=== PATIENT | female | born 1980 | race Caucasian/White ===

== ENCOUNTER 2018-05-05 15:48 | Emergency (ER) | payer BC ==
[2018-05-05 16:21] VITALS: BP 107/72
--- NOTE | 2018-05-05 16:35 | UC ---
Respiratory Complaint HPI - HPI Summary HPI Summary: 38-year-old woman comes in to clinic today with a chief complaint of 2 weeks of upper respiratory tract infection symptoms. She's of runny nose sore throat cough chest congestion for 2 weeks. She has had chills. [id number] medicine is not helping. She's been having yellow sputum she feels primarily the infection. She did travel to [place] 2 weeks ago. - History of Current Complaint Chief Complaint: UCGeneralIllness Stated Complaint: COUGH Time Seen by Provider: 05/05/18 16:25 Hx Last Menstrual Period: 07/21/15 Pain Intensity: 2 - Allergies/Home Medications Allergies/Adverse Reactions: Allergies Allergy/AdvReac Type Severity Reaction Status Date / Time environmental Allergy Eyes Uncoded 05/05/18 16:21 Itchy/Swollen/Red/Watery PMH/Surg Hx/FS Hx/Imm Hx Previously Healthy: Yes - Surgical History Surgical History: Yes Surgery Procedure, Year, and Place: R shoulder surgery- - Family History Known Family History: Positive: None - Social History Alcohol Use: Occasionally Substance Use Type: None Smoking Status (MU): Never Smoked Tobacco Household Exposure Type: Cigarettes - Immunization History Most Recent Influenza Vaccination: Not the Season Review of Systems All Other Systems Reviewed And Are Negative: Yes Constitutional: Positive: Chills Skin: Positive: Negative Eyes: Positive: Negative ENT: Positive: Sore Throat, Nasal Discharge, Sinus Congestion Respiratory: Positive: Cough Cardiovascular: Positive: Negative Gastrointestinal: Positive: Negative Motor: Positive: Negative Neurovascular: Positive: Negative Musculoskeletal: Positive: Negative Neurological: Positive: Negative Psychological: Positive: Negative Is Patient Immunocompromised?: No Physical Exam Triage Information Reviewed: Yes Appearance: No Pain Distress, Well-Nourished, Ill-Appearing - MILD Vital Signs: Initial Vital Signs Temp 97.5 F 05/05/18 16:18 Pulse 73 05/05/18 16:18 Resp 18 05/05/18 16:18 BP 107/72 05/05/18 16:18 Pulse Ox 100 05/05/18 16:18 Vital Signs Reviewed: Yes Eye Exam: Normal Eyes: Positive: Conjunctiva Clear ENT: Positive: Pharynx normal, Pharyngeal erythema, Nasal congestion, Nasal drainage, TMs normal Neck exam: Normal Neck: Positive: Supple Respiratory: Positive: Lungs clear, Normal breath sounds, No respiratory distress Cardiovascular: Positive: RRR Musculoskeletal Exam: Normal Musculoskeletal: Positive: Strength Intact, ROM Intact Neurological Exam: Normal Neurological: Positive: Alert, Muscle Tone Normal Psychological Exam: Normal Psychological: Positive: Normal Response To Family, Age Appropriate Behavior Skin Exam: Normal UC Diagnostic Evaluation - Laboratory O2 Sat by Pulse Oximetry: 100 Respiratory Course/Dx - Differential Dx/Diagnosis Provider Diagnosis: Bronchitis Discharge - Sign-Out/Discharge Documenting (check all that apply): Patient Departure All imaging exams completed and their final reports reviewed: No Studies - Discharge Plan Condition: Stable Disposition: HOME Prescriptions: Azithromyxin PARADISE (NF) [Z-Paradise (Zithromax) 250 mg tabs #6] 2 tab PO .TODAY, THEN 1 DAILY #6 tab Benzonatate CAP* [Tessalon 100 MG CAP*] 100 mg PO TID PRN #20 cap PRN Reason: Cough Patient Education Materials: Acute Bronchitis (ED) Referrals: Krystian MADDEN,Gonzalo Aranda [Primary Care Provider] - Additional Instructions: FOLLOW UP WITH YOUR DOCTOR IF NOT COMPLETELY IMPROVED. GET RECHECKED FOR ANY WORSENING OF YOUR CONDITION OR QUESTIONS OR CONCERNS. - Billing Disposition and Condition Condition: STABLE Disposition: Home
== END 2018-05-05 16:40 | disposition home or self-care (01) ==
LOC: UCEAST 16:14
DX: J40 Bronchitis, not specified as acute or chronic (principal)
CPT/HCPCS: 99202; G0463

== ENCOUNTER 2018-06-09 21:22 | Emergency (ER) | payer BC ==
[2018-06-09] MEDS ORDERED: NS 0.9% 1000 ML* 1,000 ML IV ONE (23:32)
[2018-06-09] MEDS ORDERED: PROCHLORPERAZINE INJ 5 MG/ML 2 ML VIAL IV ONE (23:41)
[2018-06-09 23:49] LABS: ABS Basophils 0.1 10^3/ul (0-0.2); ABS Eosinophils 0.2 10^3/ul (0-0.6); ABS Lymphocytes 3.2 10^3/ul (1.0-4.8); ABS Monocytes 0.7 10^3/ul (0-0.8); ABS Neutrophils 7.1 10^3/ul (1.5-7.7); ABS Nucleated RBC 0 10^3/ul; Eosinophil % 1.5 %; Hematocrit 39 % (35-47); Hemoglobin 12.9 g/dl (12.0-16.0); Lymphocyte % 28.6 %; Mean Corpuscular HGB Conc 33 g/dl (31-36); Mean Corpuscular Hemoglobin 28 pg (27-31); Mean Corpuscular Volume 85 fL (80-97); Mean Platelet Volume 7.4 fL (7.4-10.4); Nucleated Red Blood Cells % 0; Platelet Count 295 10^3/ul (150-450); Red Blood Count 4.61 10^6/ul (4.00-5.40); Red Cell Distribution Width 12 % (10.5-15); White Blood Count 11.3 10^3/ul (3.5-10.8)
[2018-06-10 00:05] LABS: Albumin 4.2 g/dL (3.2-5.2); Albumin/Globulin Ratio 1.4 (1-3); BUN/Creatinine Ratio 10.7 (8-20); Calcium 9.9 mg/dL (8.6-10.3); EGFR Non-African American 87.4 (>60); Globulin 3.1 g/dL (2-4); Potassium 3.5 mmol/L (3.5-5.0); Total Bilirubin 0.5 mg/dL (0.2-1.0); Total Protein 7.3 g/dL (6.4-8.9)
--- NOTE | 2018-06-10 00:52 | ED ---
GI/ HPI - HPI Summary HPI Summary: Pt. is a 38 y.o female who presents to the ER for N/V x 3 days. Pt. is currently 6 weeks . She has not yet seen her OB. This is her first . Pt. notes some mild diarrhea as well. She notes intermittent epigastric discomfort but denies pelvic pain/cramping, vaginal discharge or bleeding. Denies fever, cough, sore throat. No past medical hx. Pt. states she has tried taking OTC vitamin B6 and unisom without improvement. She called her OB office and they rx reglan which is not helping either. Symptoms are moderate in severity. No current modifying factors. - History of Current Complaint Chief Complaint: EDNauseaVomitDiarrh Time Seen by Provider: 06/09/18 23:25 Stated Complaint: ABD PAIN Hx Obtained From: Patient Hx Last Menstrual Period: 07/21/15 Pain Intensity: 3 - Allergy/Home Medications Allergies/Adverse Reactions: Allergies Allergy/AdvReac Type Severity Reaction Status Date / Time environmental Allergy Eyes Uncoded 06/09/18 21:28 Itchy/Swollen/Red/Watery PMH/Surg Hx/FS Hx/Imm Hx Previously Healthy: Yes Endocrine/Hematology History: Denies: Hx Diabetes, Hx Thyroid Disease Cardiovascular History: Denies: Hx Hypertension Respiratory History: Denies: Hx Asthma, Hx Chronic Obstructive Pulmonary Disease (COPD) GI History: Denies: Hx Ulcer - Surgical History Surgery Procedure, Year, and Place: R shoulder surgery- 01 Infectious Disease History: No Infectious Disease History: Denies: Hx Clostridium Difficile, Hx Hepatitis, Hx Human Immunodeficiency Virus (HIV), Hx of Known/Suspected MRSA, Hx Shingles, Hx Tuberculosis, Hx Known/ Suspected VRE, Hx Known/Suspected VRSA, History Other Infectious Disease, Traveled Outside the [place] in Last 30 Days - Family History Known Family History: Positive: None, Non-Contributory - Social History Occupation: Employed Full-time Lives: With Family Alcohol Use: Occasionally Substance Use Type: Reports: None Smoking Status (MU): Never Smoked Tobacco Review of Systems Constitutional: Negative Negative: Fever, Chills Eyes: Negative ENT: Negative Cardiovascular: Negative Respiratory: Negative Positive: Abdominal Pain - epigastric discomfort, Vomiting, Diarrhea, Nausea Genitourinary: Negative Negative: dysuria Neurological: Negative All Other Systems Reviewed And Are Negative: Yes Physical Exam Triage Information Reviewed: Yes Vital Signs On Initial Exam: Initial Vitals Temp Pulse Resp BP Pulse Ox 98.4 F 72 16 114/71 100 06/09/18 21:25 06/09/18 21:25 06/09/18 21:25 06/09/18 21:25 06/09/18 21:25 Vital Signs Reviewed: Yes Appearance: Positive: Well-Appearing - Pt. sitting up in bed in NAD. Mother present. Skin: Positive: Warm, Dry Head/Face: Positive: Normal Head/Face Inspection Eyes: Positive: Normal, EOMI, Conjunctiva Clear ENT: Positive: Other - mucosa dry Neck: Positive: Supple Respiratory/Lung Sounds: Positive: Clear to Auscultation, Breath Sounds Present Cardiovascular: Positive: Normal, RRR Abdomen Description: Positive: Other: - Abd. is soft without tenderness. Musculoskeletal: Positive: Normal, Strength/ROM Intact Neurological: Positive: Normal, CN Intact II-III Psychiatric: Positive: Affect/Mood Appropriate Diagnostics - Vital Signs Vital Signs Temp Pulse Resp BP Pulse Ox 06/09/18 23:27 62 114/74 100 06/09/18 21:25 98.4 F 72 16 114/71 100 - Laboratory Lab Results: Lab Results 06/09/18 06/09/18 Range/Units 23:43 23:43 WBC 11.3 H (3.5-10.8) 10^3/ul RBC 4.61 (4.00-5.40) 10^6/ul Hgb 12.9 (12.0-16.0) g/dl Hct 39 (35-47) % MCV 85 (80-97) fL MCH 28 (27-31) pg MCHC 33 (31-36) g/dl RDW 12 (10.5-15) % Plt Count 295 (150-450) 10^3/ul MPV 7.4 (7.4-10.4) fL Neut % (Auto) 63.0 % Lymph % (Auto) 28.6 % Vilas % (Auto) 6.4 % Eos % (Auto) 1.5 % Baso % (Auto) 0.5 % Absolute Neuts (auto) 7.1 (1.5-7.7) 10^3/ul Absolute Lymphs (auto) 3.2 (1.0-4.8) 10^3/ul Absolute Monos (auto) 0.7 (0-0.8) 10^3/ul Absolute Eos (auto) 0.2 (0-0.6) 10^3/ul Absolute Basos (auto) 0.1 (0-0.2) 10^3/ul Absolute Nucleated RBC 0 10^3/ul Nucleated RBC % 0 Sodium 134 L (135-145) mmol/L Potassium 3.5 (3.5-5.0) mmol/L Chloride 102 (101-111) mmol/L Carbon Dioxide 25 (22-32) mmol/L Anion Gap 7 (2-11) mmol/L BUN 8 (6-24) mg/dL Creatinine 0.75 (0.51-0.95) mg/dL Est GFR ( Amer) 105.8 (>60) Est GFR (Non-Af Amer) 87.4 (>60) BUN/Creatinine Ratio 10.7 (8-20) Glucose 91 (70-100) mg/dL Calcium 9.9 (8.6-10.3) mg/dL Total Bilirubin 0.50 (0.2-1.0) mg/dL AST 16 (13-39) U/L ALT 9 (7-52) U/L Alkaline Phosphatase 59 (34-104) U/L Total Protein 7.3 (6.4-8.9) g/dL Albumin 4.2 (3.2-5.2) g/dL Globulin 3.1 (2-4) g/dL Albumin/Globulin Ratio 1.4 (1-3) Result Diagrams: 06/09/18 23:43 06/09/18 23:43 Lab Statement: Any lab studies that have been ordered have been reviewed, and results considered in the medical decision making process. GIGU Course/Dx - Course Course Of Treatment: Pt. presenting for N/V in early . She does have mild diarrhea as well. She has no abd. tenderness on exam. VS stable. Will check basic labs, give iv fluids and reglan. Labs are unremarkable. U/A shows ketones without signs of infection. On re-exam pt. is tolerating PO fluids and has had no vomiting in ED. Pt. states she is feeling better. Will dc home with rx for compazine. To call OB tomorrow for apt. To return to ER if sxs change or worsen. Pt. understands and agrees with plan. - Diagnoses Differential Diagnoses - Female: Diarrhea, Gerd, Vomiting Provider Diagnoses: Nausea/vomiting in Discharge - Sign-Out/Discharge Documenting (check all that apply): Patient Departure - Discharge Plan Condition: Improved Disposition: HOME Prescriptions: Prochlorperazine TAB* [Compazine Tab*] 10 mg PO Q6H PRN #20 tab PRN Reason: Nausea Patient Education Materials: Nausea and Vomiting in (ED), Hyperemesis Gravidarum (ED) Referrals: Lillian Monson MD [Medical Doctor] - Domingo Joshua MD [Primary Care Provider] - Additional Instructions: Schedule a close follow up appointment with your PCP Medication as directed for nausea/vomiting Return to the ER if symptoms change or worsen - Billing Disposition and Condition Condition: IMPROVED Disposition: Home
[2018-06-10 01:10] LABS: Urine Appearance Cloudy; Urine Bilirubin Negative (Negative); Urine Blood Negative (Negative); Urine Color Yellow; Urine Glucose Negative (Negative); Urine Ketones 2+ (Negative); Urine Nitrite Negative (Negative); Urine Protein Negative (Negative); Urine Specific Gravity 1.024 (1.010-1.030); Urine Urobilinogen Negative (Negative)
[2018-06-10 01:20] VITALS: BP 101/63
== END 2018-06-10 01:23 | disposition home or self-care (01) ==
LOC: ED 21:22
DX: R11.2 Nausea with vomiting, unspecified (principal); Z34.91 Encounter for supervision of normal pregnancy, unspecified, first trimester
CPT/HCPCS: 36415; 80053; 81003; 85025; 96360; 99282; J0780

== ENCOUNTER 2018-12-23 05:06 | Inpatient (IN) | payer BC ==
[2018-12-23 06:13] LABS: ABS Basophils 0.1 10^3/ul (0-0.2); ABS Eosinophils 0.2 10^3/ul (0-0.6); ABS Lymphocytes 3.1 10^3/ul (1.0-4.8); ABS Monocytes 0.7 10^3/ul (0-0.8); ABS Neutrophils 6.8 10^3/ul (1.5-7.7); Eosinophil % 1.7 %; Hematocrit 30 % (35-47); Hemoglobin 9.8 g/dL (12.0-16.0); Lymphocyte % 28.4 %; Mean Corpuscular HGB Conc 33 g/dL (31-36); Mean Corpuscular Hemoglobin 25 pg (27-31); Mean Corpuscular Volume 76 fL (80-97); Mean Platelet Volume 8.9 fL (7.4-10.4); Nucleated Red Blood Cells % 0.1; Platelet Count 298 10^3/uL (150-450); Red Blood Count 3.89 10^6 /uL (3.70-4.87); Red Cell Distribution Width 15 % (10-15); White Blood Count 10.9 10^3/uL (3.5-10.8)
[2018-12-23 06:47] LABS: Urine Benzodiazepine Screen None Detected (None Detect); Urine Opiates Screen None Detected (None Detect)
[2018-12-23] MEDS ORDERED: Buffered Lidocaine 1% SYRIN* 1 ML/SYRINGE INTRADERM ONE (07:35)
[2018-12-23] MEDS ORDERED: Lactated Ringers 1000 ML Bag* 1,000 ML IV ONE ×2 (07:35→15:28)
[2018-12-23] MEDS ORDERED: Ampicillin ADVAN(*) 2 GM in NS 0.9% 100 ML* 100 ML IVPB ONE (07:56)
[2018-12-23] MEDS ORDERED: Azithromycin TAB* 250 MG PO ONE (07:58)
[2018-12-23] MEDS ORDERED: Betamethasone INJ* 6 MG/ML 5 ML VIAL (30 MG) IM SCH (08:00)
--- NOTE | 2018-12-23 08:17 | HP ---
General Information - Reason for Visit Patient is 38 year at 34 4/7 weeks with known twin di/di with breech/ vertex presentation presents with PPROM since 430am on 12/23/2018. She is having mild cramping which started after the rupture of membranes. Patient denies headache, nausea, vomiting, fever, chills, dysuria. She denies vaginal bleeding. She feels normal movements. She denies complications of her such as hypertension, diabetes. She does have mild anemia. She has been taking her vitamin daily. She has a history of infertility but this was a naturally conceived twin . PMH: infertility, no hypertension, no diabetes, no asthma PSH: uterine septum resection, shoulder surgery Allergies: NKDA Meds: vitamin SH: lives with her fiance, she denies alcohol, drug use or cigarette use FH: twins, paternal grandfather - diabetes and prostate cancer ROS: as stated, otherwise negative - General Information Maternal Age: 38 Grav: 2 Para: 0 SAB: 1 IEA: 0 Estimated Due Date: 01/30/19 Determined By: LMP Gestational Age in Weeks/Days: 34 4/7 Maternal Blood Type and Rh: O Positive - Results this Serology/RPR Result: Non-Reactive Rubella Result: Immune HBsAg Result: Negative HIV Result: Negative Past Medical History Delivery History: See Records Pertinent Past Medical History: See Records Pertinent Past Surgical History: See Records Pertinent Family History: See Records - Antepartal Records Antepartal Records: Reviewed, Complicated by: - di/di twin breech/vertex presentation Review of Systems CV Complaint: No Respiratory: Shortness of Breath: No Gastrointestinal: No Nausea/Vomiting Genitourinary: Dysuria Musculoskeletal: No Complaint Neurological: No Headache Movement: Normal - Comments mild uterine cramping Exam Allergies/Adverse Reactions: Allergies environmental Allergy (Uncoded 06/09/18 21:28) Eyes Itchy/Swollen/Red/Watery T 99.8 BP 125/77, P71 Lab Values - Entire Visit: Laboratory Tests 12/23/18 12/23/18 12/23/18 05:15 06:00 06:00 WBC 10.9 H RBC 3.89 Hgb 9.8 L Hct 30 L MCV 76 L MCH 25 L MCHC 33 RDW 15 Plt Count 298 MPV 8.9 Neut % (Auto) 62.5 Lymph % (Auto) 28.4 Dickey % (Auto) 6.8 Eos % (Auto) 1.7 Baso % (Auto) 0.6 Absolute Neuts (auto) 6.8 Absolute Lymphs (auto) 3.1 Absolute Monos (auto) 0.7 Absolute Eos (auto) 0.2 Absolute Basos (auto) 0.1 Absolute Nucleated RBC 0.0 Nucleated RBC % 0.1 Vag Amniotic Fld Detect Positive Urine Opiates Screen None detected Ur Barbiturates Screen None detected Ur Phencyclidine Scrn None detected Ur Amphetamines Screen None detected U Benzodiazepines Scrn None detected Urine Cocaine Screen None detected U Cannabinoids Screen None detected Blood Type Antibody Screen 12/23/18 06:00 WBC RBC Hgb Hct MCV MCH MCHC RDW Plt Count MPV Neut % (Auto) Lymph % (Auto) Dickey % (Auto) Eos % (Auto) Baso % (Auto) Absolute Neuts (auto) Absolute Lymphs (auto) Absolute Monos (auto) Absolute Eos (auto) Absolute Basos (auto) Absolute Nucleated RBC Nucleated RBC % Vag Amniotic Fld Detect Urine Opiates Screen Ur Barbiturates Screen Ur Phencyclidine Scrn Ur Amphetamines Screen U Benzodiazepines Scrn Urine Cocaine Screen U Cannabinoids Screen Blood Type O Positive Antibody Screen Negative - Measurements Height: 1.68 m Weight: 86.636 kg Weight in lbs: 191.139797 Body Mass Index (BMI): 30.8 Pre- Weight: 75.75 kg Weight Gained This : 24 lbs and 0 ozs - Exam Breast: Breast Exam Deferred CVA: No CVA Tenderness Extremities: No Edema Heart: Normal Rhythm/Heart Sounds HEENT: No Significant Findings Lungs: Clear Bilaterally Rectal: Rectal Exam Deferred Reflexes: DTR 2+ Thyroid: No Thyromegaly Other Exam Findings: gravid, breech presentation baby A, vertex presentation baby B - Abdominal Exam Abdomen Exam: Non-Tender - Ultrasound/Biophysical Profile Ultrasound Status: Bedside Exam Ultrasound Findings: ultrasound for presentation: baby A breech, amniotic fluid pocket 4.98cm, baby B vertex, amniotic fluid pocket 4.0cm Targeted Exam Findings Cervical Exam: Closed Effacement: Thick Station: High Presenting Part: Breech Membrane Status: SROM Amniotic Fluid Evaluation: Gross Rupture, Clear Bleeding/Discharge: None EFM Findings - External Monitor Findings External Monitor Findings: Variability Moderate, Baseline Stable Contractions: Mild, < 45 Seconds Assessment/Plan - Obstetrical Risk Factors Obstetrical Risk Factors: GBS Unknown, , Breech - Plan Plan: Observe, Antibiotic Prophylaxis, Steroids Plan Comment: Patient was counselled regarding the risk/benefits/and alternatives of expectant management and administration of steroids and antibiotics with her diagnosis of premature rupture of membranes at 34 4/7 weeks and she is in agreement with the management plan. Patient for Csection delivery after steroid administration due to breech presentation of twin A. Ita Santiago MD - Date/Time of Admission Date of Admission: 12/23/18 - premature rupture of membranes at 34 4/7 weeks Time of Admission: 08:38
[2018-12-23] MEDS: Prenatal Vitamin TAB PO SCH (08:37)
[2018-12-23] MEDS ORDERED: Docusate CAP* 100 MG PO PRN (08:42)
[2018-12-23] MEDS ORDERED: Ferrous Gluconate TAB* 324 MG TAB PO SCH (09:00)
[2018-12-23] MEDS ORDERED: OBEPIDURAL* 250 ML EPIDURAL ONE (14:36)
[2018-12-23] MEDS: Ampicillin ADVAN(*) 1 GM in NS 0.9% 50 ML* 50 ML IVPB SCH ×2 (15:04→21:46)
[2018-12-23] MEDS ORDERED: Phenylephrine 40 MCG/ML SYRINGE IV PUSH PRN ×2 (15:28)
[2018-12-23] MEDS ORDERED: EPHEDrine (Pressors)* 50 MG/ML VIAL IV PUSH PRN ×2 (15:28)
[2018-12-23] MEDS ORDERED: Famotidine TAB* 20 MG PO PRN (15:28)
[2018-12-23] MEDS ORDERED: Sodium Citrate/Citric Acid* 15 ML UDC PO PRN (15:28)
[2018-12-23] MEDS ORDERED: Lactated Ringers 1000 ML Bag* 1,000 ML IV SCH ×2 (16:00→18:00)
[2018-12-23] MEDS ORDERED: OBEPIDURAL* 250 ML EPIDURAL SCH (16:00)
[2018-12-23] MEDS ORDERED: ceFOXitin 2 GM IVPREMIX* 2 GM/50 ML BAG ONE (16:25)
[2018-12-23] MEDS ORDERED: ceFOXitin 2 GM IVPREMIX* 2 GM/50 ML BAG IVPB ONE (16:30)
--- NOTE | 2018-12-23 16:35 | PN ---
Progress Note - Progress Note Date of Service: 12/23/18 - Progress Note Note: Patient developed regular painful contractions requiring pain relief with epidural analgesia. Patient was consented for primary section for delivery of di/di twin due to breech presentation of first twin. Patient counselled with risk/benefits/alternatives to the surgery and consented to the surgery for delivery of the twin . Ita Santiago MD
[2018-12-23] MEDS ORDERED: EPHEDrine (Pressors)* 50 MG/ML VIAL ONE (16:53)
[2018-12-23] MEDS ORDERED: Ondansetron INJ* 2 MG/ML VIAL ONE (16:56)
[2018-12-23] MEDS ORDERED: diPHENhydraMINE IV* 50 MG/ML 1 ml VIAL (BENADRYL) IV PRN (17:12)
[2018-12-23] MEDS ORDERED: DiMENhydriNATE IV* 50 MG/ML VIAL IV PUSH PRN (17:12)
[2018-12-23] MEDS ORDERED: Ondansetron INJ* 2 MG/ML VIAL IV PRN ×2 (17:12→21:26)
[2018-12-23] MEDS ORDERED: oxyCODONE/Acetamin 5/325 MG* TAB PO PRN (17:12)
[2018-12-23] MEDS ORDERED: Naloxone* 0.4 MG/ML 1 ML VIAL IV PRN (17:12)
[2018-12-23] MEDS ORDERED: Naloxone* 0.4 MG/ML 1 ML VIAL IV PUSH PRN (17:17)
[2018-12-23] MEDS ORDERED: Acetaminophen TAB* 325 MG PO PRN ×2 (17:18→17:37)
[2018-12-23] MEDS ORDERED: Ketorolac INJ* 30 MG/ML 1 ML VIAL IV PUSH PRN (17:19)
[2018-12-23] MEDS ORDERED: Midazolam* 1 MG/ML 2 ML VIAL (2 MG) ONE (17:22)
[2018-12-23] MEDS ORDERED: Zolpidem TAB* 5 MG PO PRN (17:37)
[2018-12-23] MEDS ORDERED: Dibucaine 1% 28.35 GM TUBE PR PRN (17:37)
[2018-12-23] MEDS ORDERED: Glycerin ADULT SUPP PR PRN (17:37)
[2018-12-23] MEDS ORDERED: Misoprostol TAB* 200 MCG PR ONE (17:37)
[2018-12-23] MEDS ORDERED: Witch Hazel PAD* JAR TOPICAL PRN (17:37)
[2018-12-23] MEDS: fentaNYL* 50 MCG/ML 2 ML VIAL (100 MCG VIAL) IV PRN ×2 (17:57→19:01)
[2018-12-23] MEDS: Ketorolac INJ* 30 MG/ML 1 ML VIAL IV PUSH SCH (18:00)
[2018-12-23] MEDS ORDERED: Oxytocin in LR* 20 UNITS/1,000 ML BAG IVPB SCH (18:00)
[2018-12-23] MEDS ORDERED: HYDROmorphone PCA* 20 MG/20 ML PCA.SYRING PCA SCH (18:00)
[2018-12-23] MEDS ORDERED: HYDROmorphone PCA* 20 ML PCA SCH (18:00)
--- NOTE | 2018-12-23 19:07 | OP ---
OPERATIVE REPORT: DATE OF OPERATION: 12/23/18 DATE OF : 84 SURGEON: Antonino Cox MD PLASTICS NURSE: Dr. Santiago. ANESTHESIA: Spinal. PRE-OP DIAGNOSIS: Breech vertex presentation for twins at 34 weeks with premature rupture of membranes. POST-OP DIAGNOSIS: Breech vertex presentation for twins at 34 weeks with premature rupture of membranes. OPERATIVE PROCEDURE: Low transverse section. ESTIMATED BLOOD LOSS: 600 cc. SPECIMEN: Includes placentas. FINDINGS: Include a viable female, Apgars 9 and 9, weight was 5 pounds 3 ounces in breech presenting and baby B viable female, Apgars 8 and 9, 3 pounds 4 ounces in a vertex presenting. Fallopian tubes appeared normal. Uterus contained an attenuation in the midline consistent with a history of a septate uterus that was resected and I would call it partially heart shaped. DESCRIPTION OF PROCEDURE: The patient identified, procedure identified as a low transverse section. The patient was taken to the operating room, prepped and draped in the usual fashion in the left lateral recumbent position under spinal anesthesia. A Pfannenstiel incision was made in the abdomen and carried down through fat, fascia, and peritoneum. A transverse incision was made in the lower uterine segment, extended laterally using blunt dissection. The above infant was delivered in the breech presentation with ease. Cord was doubly clamped and cut and the was handed to the awaiting sanitarian inspector. Cord blood was obtained. Second baby's sac was ruptured and delivered in the vertex position. The cord was doubly clamped and cut and the infant was handed to the awaiting sanitarian inspector. Cord blood was obtained. Placentas delivered spontaneously. The uterus was wiped out with a lap sponge. The uterine incision was then closed using 0 Polysorb in a running fashion. A second layer was used to imbricate the first layer. Good hemostasis was verified. The uterus was placed back into the abdominal cavity. The gutters were wiped out with a lap sponge. The peritoneum was then closed using 3-0 Polysorb in a running fashion. Good hemostasis achieved in the subrectus layers. The fascia was closed using 0 Polysorb in a running fashion. Hemostasis was achieved in the subcu. Copious irrigation was utilized and suctioned out. The skin was closed with 4-0 Monocryl in a subcuticular fashion. All sponge and instrument counts were correct and the patient returned to the recovery room in stable condition. [id number]/[facility] #: [id number] TORRIE
[2018-12-23] MEDS: HYDROmorphone INJ* 0.5 MG/0.5 ML SYRINGE IV PRN ×2 (19:18→19:41)
[2018-12-23] MEDS ORDERED: Scopolamine 1.5 mg* PATCH TRANSDERM PRN (21:27)
[2018-12-23] MEDS ORDERED: Ondansetron INJ* 2 MG/ML VIAL IV ONE (21:30)
[2018-12-23] MEDS: Docusate CAP* 100 MG PO SCH (21:38)
[2018-12-23] MEDS: Simethicone TAB* 80 MG TAB.CHEW PO SCH (23:42)
[2018-12-24] MEDS: Ketorolac INJ* 30 MG/ML 1 ML VIAL IV PUSH SCH ×3 (00:32→13:15)
[2018-12-24 06:50] LABS: Hematocrit 22 % (35-47); Hemoglobin 7.4 g/dL (12.0-16.0); Mean Corpuscular HGB Conc 33 g/dL (31-36); Mean Corpuscular Hemoglobin 25 pg (27-31); Mean Corpuscular Volume 76 fL (80-97); Mean Platelet Volume 8.5 fL (7.4-10.4); Platelet Count 249 10^3/uL (150-450); Red Blood Count 2.95 10^6 /uL (3.70-4.87); Red Cell Distribution Width 14 % (10-15); White Blood Count 17.6 10^3/uL (3.5-10.8)
[2018-12-24 08:01] LABS: ABS Basophils 0.1 10^3/ul (0-0.2); ABS Lymphocytes 1.7 10^3/ul (1.0-4.8); ABS Monocytes 1.6 10^3/ul (0-0.8); ABS Neutrophils 14.2 10^3/ul (1.5-7.7); Lymphocyte % 9.9 %
[2018-12-24] MEDS: Docusate CAP* 100 MG PO SCH ×3 (08:45→21:25)
[2018-12-24] MEDS: Ferrous Gluconate TAB* 324 MG TAB PO SCH ×2 (08:45→21:25)
[2018-12-24] MEDS: Simethicone TAB* 80 MG TAB.CHEW PO SCH ×4 (08:45→21:25)
[2018-12-24] MEDS: Prenatal Vitamin TAB PO SCH (08:46)
--- NOTE | 2018-12-24 10:18 | PN ---
Progress Note - Progress Note Date of Service: 12/24/18 - POD#1 s/p PLTCS Note: Patient is s/p POD#1 s/p PLTCS for di/di twin with PPROM at 34 4/7 weeks. Baby girls are in the room with her in isolets. She is passing gas and tolerating regular diet. She is using QUALITY ASSURANCE LEAD intermittently and toradol every 6 hours for pain relief. She will have the christensen catheter removed today. She is breast and bottle feeding her twins. She had some nausea and vomiting yesterday but this has resolved. She denies dizziness. O: Vital Signs: Temp Pulse Resp BP Pulse Ox 98.8 F 60 20 116/67 97 12/24/18 07:30 12/24/18 07:30 12/24/18 08:00 12/24/18 07:30 12/24/18 08:00 chest: clear to auscultation cardiac: regular rate and rhythm abdomen: soft, mild distension, Bowel sounds present, dressing dry and intact lochia scant extremities nontender, no edema. Laboratory Results - last 24 hr 12/24/18 06:41 WBC 17.6 H RBC 2.95 L Hgb 7.4 L Hct 22 L MCV 76 L MCH 25 L MCHC 33 RDW 14 Plt Count 249 MPV 8.5 Neut % (Auto) 80.8 Lymph % (Auto) 9.9 Dunn % (Auto) 9.0 Eos % (Auto) 0.0 Baso % (Auto) 0.3 Absolute Neuts (auto) 14.2 H Absolute Lymphs (auto) 1.7 Absolute Monos (auto) 1.6 H Absolute Eos (auto) 0.0 Absolute Basos (auto) 0.1 Absolute Nucleated RBC 0.0 Nucleated RBC % 0.0 Assessment: POD #1 s/p Primary LTCS for delivery of twins at 34/4/7 weeks, acute postoperative blood loss anemia. Patient is not having further heavy lochia, vital signs are stable. Plan : Patient is ordered for iron supplementation, she will have christensen discontinued, out of bed with assistance, switch QUALITY ASSURANCE LEAD to oral pain medications when tolerating oral intake, continue supportive care. Ita Santiago MD
[2018-12-24] MEDS: oxyCODONE/Acetamin 5/325 MG* TAB PO PRN ×3 (13:16→23:37)
[2018-12-24] MEDS: Ibuprofen TAB* 600 MG PO PRN (19:28)
[2018-12-25] MEDS: Ibuprofen TAB* 600 MG PO PRN ×4 (03:10→22:26)
[2018-12-25] MEDS: oxyCODONE/Acetamin 5/325 MG* TAB PO PRN ×4 (05:40→20:09)
[2018-12-25] MEDS: Docusate CAP* 100 MG PO SCH ×4 (08:50→20:11)
[2018-12-25] MEDS: Ferrous Gluconate TAB* 324 MG TAB PO SCH ×2 (08:50→20:10)
[2018-12-25] MEDS: Simethicone TAB* 80 MG TAB.CHEW PO SCH ×5 (08:50→20:10)
[2018-12-25] MEDS: Prenatal Vitamin TAB PO SCH (09:00)
[2018-12-25 20:27] VITALS: BP 126/69
[2018-12-26] MEDS: oxyCODONE/Acetamin 5/325 MG* TAB PO PRN ×4 (00:44→12:40)
[2018-12-26] MEDS: Ibuprofen TAB* 600 MG PO PRN ×2 (04:11→10:11)
[2018-12-26] MEDS: Prenatal Vitamin TAB PO SCH (08:44)
[2018-12-26] MEDS: Simethicone TAB* 80 MG TAB.CHEW PO SCH ×2 (08:44→12:40)
[2018-12-26] MEDS: Ferrous Gluconate TAB* 324 MG TAB PO SCH (08:44)
[2018-12-26] MEDS: Docusate CAP* 100 MG PO SCH ×2 (08:45→12:40)
[2018-12-26] MEDS ORDERED: Scopolamine PATCH Remove* 1 NOTE MISC PATCH OFF ONE (22:00)
== END 2018-12-26 13:50 | disposition home or self-care (01) | DRG 540 ==
LOC: MCHOBOUT 05:06 → MCHOB 05:50
PROVIDERS: ADMIT Specialist; ATTEND Obstetrics & Gynecology
PROC: 10D00Z1 Extraction of Products of Conception, Low, Open Approach (ICD-10-PCS; principal; 2018-12-23 16:37)
DX: O32.1XX1 Maternal care for breech presentation, fetus 1 (principal); O42.013 Preterm premature rupture of membranes, onset of labor within 24 hours of rupture, third trimester; O99.02 Anemia complicating childbirth; D64.9 Anemia, unspecified; O90.81 Anemia of the puerperium; D64.89 Other specified anemias; O30.043 Twin pregnancy, dichorionic/diamniotic, third trimester; Z3A.34 34 weeks gestation of pregnancy; Z37.2 Twins, both liveborn
CPT/HCPCS: 36415; 76815; 76816; 80307; 84112; 85025; 86850; 86900; 86901; 87070; 87086; 88307; A9270-GY; J0694; J0702; J1170; J1885; J2250; J2405; J3010

== ENCOUNTER 2023-11-10 14:21 | Observation (INO) ==
[2023-11-10] MEDS: Lactated Ringers 1000 ml BAG 1,000 ML IV SCH (15:09)
[2023-11-10 15:20] LABS: ABS Eosinophils 0.2 10^3/uL (0.0-0.5); ABS Lymphocytes 4.5 10^3/uL (1.0-4.8); ABS Monocytes 0.7 10^3/uL (0.0-0.9); ABS Neutrophils 8.7 10^3/uL (1.5-7.6); ABS Nucleated RBC 0.01 10^3/ul; Eosinophil % 1.1 %; Hematocrit 35.1 % (35-45); Hemoglobin 11.3 g/dL (11.5-14.3); Mean Corpuscular Hemoglobin 27.3 pg (27-33); Mean Corpuscular Hgb Conc 32.2 g/dL (31-36); Mean Corpuscular Volume 84.8 fL (80-97); Mean Platelet Volume 6.9 fL (7.5-11.2); Platelet Count 351 10^3/uL (150-450); Red Blood Count 4.14 10^6/uL (3.63-4.92); Red Cell Distribution Width 12.8 % (12-17); White Blood Count 14.1 10^3/uL (3.8-11.8)
[2023-11-10] MEDS ORDERED: Senna TAB 8.6 mg TAB PO PRN (15:37)
[2023-11-10] MEDS ORDERED: Polyethylene Glycol 3350 17 GM PACKET PO PRN (15:37)
[2023-11-10 15:59] LABS: ALT 18 U/L (7-52); AST 17 U/L (13-39); Albumin 3.7 g/dL (3.2-5.2); Albumin/Globulin Ratio 1.8 (1-3); Alkaline Phosphatase 48 U/L (35-149); Anion Gap 6 mmol/L (2-16); Blood Urea Nitrogen 20 mg/dL (6-24); CO2 Carbon Dioxide 28 mmol/L (22-32); Calcium 8.8 mg/dL (8.6-10.3); Chloride 102 mmol/L (101-111); Creatinine, Serum 1.02 mg/dL (0.51-0.95); Globulin 2.1 g/dL (2-4); Glucose 94 mg/dL (70-100); Magnesium 1.9 mg/dL (1.9-2.7); Potassium 3.7 mmol/L (3.5-5.0); Sodium 136 mmol/L (135-145); Total Bilirubin 0.3 mg/dL (0.2-1.0); Total Protein 5.8 g/dL (6.4-8.9); eGFR CKD-EPI 70.9 (>60)
[2023-11-10 16:04] LABS: HCG Pregnancy < 0.60 mIU/mL
[2023-11-10 16:13] LABS: TSH Ultra Thyroid Stim Horm 1.17 mcIU/mL (0.34-5.60)
[2023-11-10] MEDS ORDERED: Sulfur Hexaflouride MICROSPHR 25 MG VIAL IV ONE (17:27)
[2023-11-10] MEDS ORDERED: Atropine 1 MG/ML INJ 1 ML VIAL IV PUSH PRN ×2 (17:37→17:38)
[2023-11-10 18:23] LABS: Cholesterol 171 mg/dL; LDL Cholesterol 78 mg/dL; Triglycerides 193 mg/dL
[2023-11-10] MEDS: Potassium Chloride LIQUID 20 MEQ/15 ML LIQUID PO ONE (18:23)
[2023-11-10 19:56] LABS: Urine Appearance Clear; Urine Bilirubin Negative (Negative); Urine Blood Negative (Negative); Urine Color Colorless; Urine Glucose Negative (Negative); Urine Ketones Negative (Negative); Urine Nitrite Negative (Negative); Urine Protein Negative (Negative); Urine Specific Gravity 1.006 (1.002-1.030); Urine Urobilinogen Negative (Negative); Urine pH 5.5 (5.0-8.0)
[2023-11-10 20:01] LABS: High Sensitivity Troponin 1 Hr 6 pg/mL (<15)
[2023-11-10 20:10] LABS: Urine Bacteria Absent /HPF (Absent); Urine Red Blood Cell 1+(3-5/hpf) /HPF (0-Trace); Urine Squamous Epithelial Cell Present /HPF (Absent); Urine White Blood Cell Trace(0-5/hpf) /HPF (0-Trace)
[2023-11-11 08:16] LABS: ABS Basophils 0.1 10^3/uL (0.0-0.1); ABS Eosinophils 0.4 10^3/uL (0.0-0.5); ABS Lymphocytes 2.5 10^3/uL (1.0-4.8); ABS Monocytes 1.3 10^3/uL (0.0-0.9); ABS Neutrophils 18.3 10^3/uL (1.5-7.6); ABS Nucleated RBC 0.01 10^3/ul; Eosinophil % 1.7 %; Hematocrit 39.3 % (35-45); Hemoglobin 12.9 g/dL (11.5-14.3); Mean Corpuscular Hemoglobin 27.8 pg (27-33); Mean Corpuscular Hgb Conc 32.8 g/dL (31-36); Mean Corpuscular Volume 84.8 fL (80-97); Platelet Count 376 10^3/uL (150-450); Red Blood Count 4.63 10^6/uL (3.63-4.92); Red Cell Distribution Width 13.2 % (12-17); White Blood Count 22.6 10^3/uL (3.8-11.8)
[2023-11-11 08:33] LABS: Calcium 8.8 mg/dL (8.6-10.3); Creatinine, Serum 0.88 mg/dL (0.51-0.95); Magnesium 1.9 mg/dL (1.9-2.7); Potassium 4.1 mmol/L (3.5-5.0); eGFR CKD-EPI 84.6 (>60)
[2023-11-11 09:38] LABS: C Reactive Protein 4.09 mg/L (<8.01)
[2023-11-11] MEDS: Fluticasone NASAL SPRAY 50MCG 16 gm SPRAY BTL BOTH NARES SCH (10:04)
[2023-11-11 10:07] VITALS: BP 112/66
== END 2023-11-11 12:35 | disposition home or self-care (01) ==
LOC: EDHOLD 14:21 → ED 14:21 → MEDTELE 17:28
PROVIDERS: ADMIT Internal Medicine; ATTEND Internal Medicine